=== PATIENT | male | born 1945 | race American Indian/Alaskan Native ===

== ENCOUNTER 2019-01-06 09:18 | Outpatient (CLI) | payer MEDICARE ==
--- NOTE | 2019-01-06 11:56 | Vascular Lab Report ---
DUPLEX DOPPLER LOWER EXTREMITY VEINS, BILATERAL INDICATION: Chronic venous hypertension (idiopathic) with ulcer of left lower. TECHNIQUE: Duplex doppler imaging was performed through the veins of both lower extremities using ve nous compression and other maneuvers. COMPARISON: No relevant prior imaging study available. FINDINGS: Right Common femoral vein: Negative. Right Superficial femoral vein: Negative. Right Popliteal vein: Negative. Right Calf veins: Negative. Left Common femoral vein: Negative. Left Superficial femoral vein: Negative. There is suggestion of echogenic chronic thrombotic residua in the mid left superficial femoral vein. No acute hypoechoic thrombus. Left Popliteal vein: Negative. Left Calf veins: Negative. Additional findings: None.. IMPRESSION: No sonographic evidence for acute DVT in either lower extremity. 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 Signer Name: Chris Cardenas Jr, MD Signed: 01/06/2019 11:51 AM Workstation Name: [id number]
== END 2019-01-06 09:19 | disposition home or self-care (01) ==
LOC: VAS 09:18
PROVIDERS: ATTEND Surgery
DX: I87.312 Chronic venous hypertension (idiopathic) with ulcer of left lower extremity (principal)
CPT/HCPCS: 93970

== ENCOUNTER 2019-01-07 07:54 | Outpatient (CLI) | payer MEDICARE | END 2019-01-07 07:55 | disposition home or self-care (01) | LOC: WOUND 07:54 | PROVIDERS: ATTEND Surgery | DX: I87.312 Chronic venous hypertension (idiopathic) with ulcer of left lower extremity (principal); L97.822 Non-pressure chronic ulcer of other part of left lower leg with fat layer exposed; I89.0 Lymphedema, not elsewhere classified; I11.0 Hypertensive heart disease with heart failure; I50.9 Heart failure, unspecified; F17.200 Nicotine dependence, unspecified, uncomplicated; Z85.46 Personal history of malignant neoplasm of prostate ==

== ENCOUNTER 2019-01-14 08:02 | Outpatient (CLI) | payer MEDICARE ==
[2019-01-14] MEDS ORDERED: VITAMIN A & D OINT 56.7 GM TP PRN (09:00)
== END 2019-01-14 08:03 | disposition home or self-care (01) ==
LOC: WOUND 08:02
PROVIDERS: ATTEND Surgery
DX: I87.312 Chronic venous hypertension (idiopathic) with ulcer of left lower extremity (principal); L97.822 Non-pressure chronic ulcer of other part of left lower leg with fat layer exposed; I89.0 Lymphedema, not elsewhere classified; I11.0 Hypertensive heart disease with heart failure; I50.9 Heart failure, unspecified; F17.200 Nicotine dependence, unspecified, uncomplicated; Z85.46 Personal history of malignant neoplasm of prostate
CPT/HCPCS: 99214; G0463

== ENCOUNTER 2019-10-05 13:19 | Emergency (ER) | payer MEDICARE, OTHER ==
[2019-10-05] MEDS ORDERED: ACETAMINOPHEN 325 MG TAB PO PRN (20:11)
[2019-10-05] MEDS ORDERED: ALBUTEROL 2.5 MG/3 ML NEBU IH PRN (20:11)
--- NOTE | 2019-10-05 20:13 | Emergency Department Report ---
ED General Adult HPI - General Chief complaint: Wound/Laceration Stated complaint: LEG WOUND SEEPING PUI?: No Time Seen by Provider: 10/05/19 20:02 Source: family, RN notes reviewed, old records reviewed Mode of arrival: Ambulatory Limitations: Physical Limitation, Other (Patient is a poor historian) - History of Present Illness Initial comments: This is a 74-year-old gentleman. His past medical history includes presumed ulcerative colitis, hypokalemia, hypomagnesemia, hypertension, COPD, dyslipidemia, gout, lower extremity lymphedema. Apparently, he has seen Dr. De Guzman in the wound care clinic in the past. He presents to the ER today with a complaint of seeping wound to left lower extremity. He denies headache, neck pain, chest pain, abdominal pain, shortness of breath, fevers, chills, trauma, irritative and obstructive urinary symptoms. Symptoms present for the past 3 days, do not radiate anywhere, and do not have exacerbating or relieving factors. The patient is somewhat of a poor historian. He cannot recall the last time he saw Dr. De Guzman in the wound care clinic. Some history is obtained from review of his old medical records. It is not clear who his dressing or wrapping his wounds at home. -: Gradual, days(s) Location: left, lower extremity Severity scale (0 -10): 0 Consistency: constant Improves with: none Worsens with: none Associated Symptoms: denies other symptoms - Related Data Previous Rx's Medication Instructions Recorded Last Taken Type ALBUTEROL NEB's [Proventil 0.083% 2.5 mg IH Q4HRT PRN #30 nebu 01/18/18 Unknown Rx NEBS] Aspirin [Adult Low Dose Aspirin EC] 81 mg PO DAILY #30 01/18/18 Unknown Rx Lisinopril [Zestril] 40 mg PO DAILY #30 01/18/18 Unknown Rx allopurinoL [Zyloprim] 300 mg PO DAILY #30 01/18/18 Unknown Rx Cholestyramine (with Sugar) 4 gm PO TID packet 02/08/18 Unknown Rx [Questran] predniSONE [Deltasone] 4 tab PO QDAY 7 Days #70 tablet 02/08/18 Unknown Rx Sulfamethoxazole/Trimethoprim 1 each PO BID #20 tablet 12/26/18 Unknown Rx [Bactrim DS TAB] ALBUTEROL NEB's [Proventil 0.083% 2.5 mg IH Q4HRT PRN #10 nebu 10/05/19 Unknown Rx NEBS] Acetaminophen [Acetaminophen TAB] 650 mg PO Q4H PRN #15 tablet 10/05/19 Unknown Rx Aspirin EC [Halfprin EC] 81 mg PO DAILY #30 tablet 10/05/19 Unknown Rx AtorvaSTATin [Lipitor] 20 mg PO QHS #30 10/05/19 Unknown Rx Famotidine [Pepcid] 20 mg PO BID #60 tablet 10/05/19 Unknown Rx Furosemide [Lasix TAB] 40 mg PO QDAY #30 tablet 10/05/19 Unknown Rx Potassium Chloride 20 meq PO DAILY #30 packet 10/05/19 Unknown Rx amLODIPine 10 mg PO DAILY #30 10/05/19 Unknown Rx amLODIPine 10 mg PO DAILY #30 tablet 10/05/19 Unknown Rx lisinopriL [Zestril TAB] 40 mg PO DAILY #30 tablet 10/05/19 Unknown Rx Allergies Allergy/AdvReac Type Severity Reaction Status Date / Time No Known Allergies Allergy Verified 10/05/19 13:37 ED Review of Systems ROS: Stated complaint: LEG WOUND SEEPING Other details as noted in HPI Constitutional: denies: fever Eyes: denies: eye discharge ENT: denies: congestion Respiratory: denies: wheezing Cardiovascular: denies: paroxysmal nocturnal dyspnea Gastrointestinal: denies: abdominal pain Genitourinary: denies: dysuria Musculoskeletal: myalgia Skin: rash, lesions ED Past Medical Hx - Past Medical History Hx Hypertension: Yes Hx CVA: No Hx Heart Attack/AMI: No Hx Congestive Heart Failure: Yes Hx Diabetes: No Hx Deep Vein Thrombosis: No Hx Liver Disease: No Hx Renal Disease: No Hx Arthritis: No Hx Seizures: No Hx Asthma: No Hx COPD: No Additional medical history: Lymphedema - Surgical History Additional Surgical History: prostate surgery - Social History Smoking Status: Unknown if ever smoked - Medications Home Medications: Home Medications Medication Instructions Recorded Confirmed Last Taken Type ALBUTEROL NEB's [Proventil 0.083% 2.5 mg IH Q4HRT PRN #30 nebu 18 01/30/18 Unknown Rx NEBS] Aspirin [Adult Low Dose Aspirin EC] 81 mg PO DAILY #30 01/18/18 01/30/18 Unknown Rx Lisinopril [Zestril] 40 mg PO DAILY #30 01/18/18 01/30/18 Unknown Rx allopurinoL [Zyloprim] 300 mg PO DAILY #30 01/18/18 01/30/18 Unknown Rx Cholestyramine (with Sugar) 4 gm PO TID packet 02/08/18 Unknown Rx [Questran] predniSONE [Deltasone] 4 tab PO QDAY 7 Days #70 tablet 02/08/18 Unknown Rx Sulfamethoxazole/Trimethoprim 1 each PO BID #20 tablet 12/26/18 Unknown Rx [Bactrim DS TAB] ALBUTEROL NEB's [Proventil 0.083% 2.5 mg IH Q4HRT PRN #10 nebu 10/05/19 Unknown Rx NEBS] Acetaminophen [Acetaminophen TAB] 650 mg PO Q4H PRN #15 tablet 10/05/19 Unknown Rx Aspirin EC [Halfprin EC] 81 mg PO DAILY #30 tablet 10/05/19 Unknown Rx AtorvaSTATin [Lipitor] 20 mg PO QHS #30 10/05/19 Unknown Rx Famotidine [Pepcid] 20 mg PO BID #60 tablet 10/05/19 Unknown Rx Furosemide [Lasix TAB] 40 mg PO QDAY #30 tablet 10/05/19 Unknown Rx Potassium Chloride 20 meq PO DAILY #30 packet 10/05/19 Unknown Rx amLODIPine 10 mg PO DAILY #30 10/05/19 Unknown Rx amLODIPine 10 mg PO DAILY #30 tablet 10/05/19 Unknown Rx lisinopriL [Zestril TAB] 40 mg PO DAILY #30 tablet 10/05/19 Unknown Rx ED Physical Exam - General Limitations: Other (Patient is somewhat of a poor historian) General appearance: alert, obese - Head Head exam: Present: atraumatic, normocephalic - Eye Eye exam: Present: normal appearance - ENT ENT exam: Present: normal exam, normal orophraynx, mucous membranes moist, normal external ear exam - Neck Neck exam: Present: normal inspection, full ROM. Absent: tenderness, meningismus - Respiratory Respiratory exam: Present: normal lung sounds bilaterally. Absent: respiratory distress - Cardiovascular Cardiovascular Exam: Present: regular rate, normal rhythm, normal heart sounds. Absent: bradycardia, tachycardia, irregular rhythm, systolic murmur, diastolic murmur, rubs, gallop - GI/Abdominal GI/Abdominal exam: Present: soft. Absent: distended, tenderness, guarding, rebound, rigid, pulsatile mass - Rectal Rectal exam: Present: deferred - Extremities Exam Extremities exam: Present: full ROM, pedal edema, other (2+ pulses noted in the bilateral upper and lower extremities. There is no palpable cord. negative Ho joe sign. Muscular compartments are soft. The pelvis is stable.). Absent: normal inspection (Patient has chronic appearing lymphedema in his bilateral lower extremities. In the left lower extremity, there is no redness, pus, streaking, discharge or crepitus. There is a 3 x 5 circular wound noted on the left posterior lower extremity, with active myiasis.), calf tenderness - Back Exam Back exam: Present: normal inspection, full ROM. Absent: tenderness, CVA tenderness (R), muscle spasm, paraspinal tenderness, vertebral tenderness - Neurological Exam Neurological exam: Present: alert, other (No facial droop. Tongue midline. Extraocular movements intact bilaterally. Facial sensation intact to light touch in V1, V2, V3 distribution bilaterally. 5 and a 5 strength in 4 extremities. Sensation intact to light touch in 4 extremities.). Absent: motor sensory deficit - Psychiatric Psychiatric exam: Present: normal affect, normal mood - Skin Skin exam: Present: warm, intact ED Course Vital Signs 10/05/19 10/05/19 13:40 19:45 Temperature 98.6 F Pulse Rate 67 Respiratory 18 Rate Blood Pressure 227/106 208/120 [Left] O2 Sat by Pulse 97 Oximetry ED Medical Decision Making - Lab Data Result diagrams: 10/05/19 20:36 10/05/19 20:36 Vital Signs 10/05/19 10/05/19 13:40 19:45 Temperature 98.6 F Pulse Rate 67 Respiratory 18 Rate Blood Pressure 227/106 208/120 [Left] O2 Sat by Pulse 97 Oximetry Lab Results 10/05/19 10/05/19 Range/Units 20:36 20:36 WBC 8.2 (4.5-11.0) K/mm3 RBC 5.14 H (3.65-5.03) M/mm3 Hgb 16.1 H (11.8-15.2) gm/dl Hct 48.2 H (35.5-45.6) % MCV 94 (84-94) fl MCH 31 (28-32) pg MCHC 33 (32-34) % RDW 15.3 H (13.2-15.2) % Plt Count 174 (140-440) K/mm3 Sodium 142 (137-145) mmol/L Potassium 4.4 (3.6-5.0) mmol/L Chloride 103.1 (98-107) mmol/L Carbon Dioxide 25 (22-30) mmol/L Anion Gap 18 mmol/L BUN 10 (9-20) mg/dL Creatinine 1.0 (0.8-1.5) mg/dL Estimated GFR > 60 ml/min BUN/Creatinine Ratio 10 % Glucose 88 (75-100) mg/dL Calcium 9.6 (8.4-10.2) mg/dL Magnesium 2.20 (1.7-2.3) mg/dL Total Creatine Kinase 221 H (55-170) units/L - Medical Decision Making Differential diagnosis, include but not limited to: Chronic lymphedema, chronic wounds, active myiasis, case management patient, medication noncompliance Assessment and plan: 74-year-old gentleman with chronic lymphedema, active myolysis and left lower extremity wound, without evidence of redness, pus, streaking, no evidence of compartment syndrome, neurovascularly intact. Case management consultation ordered. Discussed patient's history, physical with our general surgeon on-call, Dr. Crum. We agree that the patient does not meet criteria for hospitalization at this time. Dr. Badillo advises that the patient should follow-up with his outpatient wound care physician later on this week. I am in agreement with this plan of care. He also recommends Dakin's solution soaked gauze. Nursing team has been instructed to apply this. Hypertension reviewed and appreciated. This appears to be chronic. We will give the patient his outpatient medications, and refill his prescriptions. He does not require emergent de-escalation of his blood pressure, please reference the [employer] clinical policy on asymptomatic hypertension. Patient will be medicated with his chronic antihypertensive medications. We will also refill his medications. The patient will need to follow-up with an outpatient primary care doctor for chronic medical issues, and he will also need to follow-up with wound care. Case management consultation ordered, they can follow this up tomorrow, as it is currently after hours in this department, and the patient does not have an emergent case management needed. Critical care attestation.: If time is entered above; I have spent that time in minutes in the direct care o f this critically ill patient, excluding procedure time. ED Disposition Clinical Impression: Myiasis, Lymphedema, Hypertension, Case management patient Disposition: DC- TO HOME OR SELFCARE Is pt being admited?: No Does the pt Need Aspirin: No Condition: Stable Additional Instructions: Keep the lower extremity wound dressings in place. Follow-up with your wound surgeon, Dr. De Guzman, on Sunday or Sunday. We have contacted the general surgery team on-call, who work with Dr. De Guzman, and they have indicated that Dr. De Guzman has office hours Sunday or Sunday of this week. Therefore, it is very important to call the office first thing tomorrow, Sunday, to arrange outpatient follow-up for chronic wounds. Please continue current outpatient medications. Patient was found to have hypertension and elevated blood pressure in the emergency room. Please follow- up with a primary care doctor for hypertension within the next 3 to 4 weeks. Long-term complications of hypertension and elevated blood pressure include s troke, heart attack, disability, paralysis, loss of quality of life. Please return to the emergency room right away with new pain, worsening pain, migration of pain, projectile vomiting, change in mental status, confusion, inability to tolerate liquid feeds, new, worsened or different symptoms not present on the initial emergency room evaluation. For the patient's convenience, local primary care doctor have been listed; Dr. Janice Lee Referrals: SHELDON DE GUZMAN MD [Staff Physician] - 3-5 Days MIKY LEE MD [Staff Physician] - 3-5 Days
[2019-10-05] MEDS ORDERED: SODIUM HYPOCHLORITE, DAKIN'S 1/2 STRENGTH (0.25%) 473 ML TOPICAL SOLN TP ONE (20:32)
[2019-10-05 20:54] LABS: Hematocrit 48.2 % (35.5-45.6); Hemoglobin 16.1 gm/dl (11.8-15.2); Mean Corpuscular HGB Conc 33 % (32-34); Mean Corpuscular Volume 94 fl (84-94); Platelet Count 174 K/mm3 (140-440); Red Blood Count 5.14 M/mm3 (3.65-5.03); Red Cell Distribution Width 15.3 % (13.2-15.2)
[2019-10-05] MEDS ORDERED: FUROSEMIDE 40 MG TAB PO SCH (21:00)
[2019-10-05] MEDS ORDERED: LISINOPRIL 40 MG TAB PO SCH (21:00)
[2019-10-05] MEDS ORDERED: ASPIRIN EC 81 MG TAB PO SCH (21:00)
[2019-10-05] MEDS ORDERED: amLODIPine 10 MG TAB PO SCH (21:00)
[2019-10-05] MEDS ORDERED: amLODIPine 5 MG TAB PO SCH (21:00)
[2019-10-05 21:05] LABS: BUN/Creatinine Ratio 10; Blood Urea Nitrogen 10 mg/dL (9-20); Calcium 9.6 mg/dL (8.4-10.2)
[2019-10-05 21:13] LABS: INR 1.12 (0.87-1.13)
[2019-10-05] MEDS ORDERED: SODIUM CHLORIDE IRRI 500 ML 1,000 ML IR ONE (21:27)
[2019-10-05] MEDS ORDERED: FAMOTIDINE 20 MG TAB PO SCH (22:00)
[2019-10-05 22:04] VITALS: BP 198/96
== END 2019-10-05 22:04 | disposition home or self-care (01) ==
LOC: ED 13:19
DX: S81.802A Unspecified open wound, left lower leg, initial encounter (principal); B87.9 Myiasis, unspecified; I89.0 Lymphedema, not elsewhere classified; I10 Essential (primary) hypertension; I11.0 Hypertensive heart disease with heart failure; I50.9 Heart failure, unspecified
CPT/HCPCS: 36415; 80048; 82550; 83735; 85027; 85610; 99283; A6260; A9270

== ENCOUNTER 2019-10-16 08:21 | Outpatient (CLI) | payer MEDICARE ==
[2019-10-16] MEDS ORDERED: LIDOCAINE (4%) 40 MG/ML TOPICAL SOLN 50 ML BOTTLE TP SCH (08:30)
== END 2019-10-16 08:22 | disposition home or self-care (01) ==
LOC: WOUND 08:21
PROVIDERS: ATTEND Surgery
DX: I87.312 Chronic venous hypertension (idiopathic) with ulcer of left lower extremity (principal); L97.822 Non-pressure chronic ulcer of other part of left lower leg with fat layer exposed; I89.0 Lymphedema, not elsewhere classified; I11.0 Hypertensive heart disease with heart failure; I50.9 Heart failure, unspecified; F17.210 Nicotine dependence, cigarettes, uncomplicated; Z85.46 Personal history of malignant neoplasm of prostate

== ENCOUNTER 2019-10-23 08:02 | Outpatient (CLI) | payer MEDICARE ==
[2019-10-23] MEDS ORDERED: LIDOCAINE (4%) 40 MG/ML TOPICAL SOLN 50 ML BOTTLE TP SCH (08:30)
== END 2019-10-23 08:03 | disposition home or self-care (01) ==
LOC: WOUND 08:02
PROVIDERS: ATTEND Surgery
DX: I87.312 Chronic venous hypertension (idiopathic) with ulcer of left lower extremity (principal); L97.822 Non-pressure chronic ulcer of other part of left lower leg with fat layer exposed; I89.0 Lymphedema, not elsewhere classified; I11.0 Hypertensive heart disease with heart failure; I50.9 Heart failure, unspecified; F17.210 Nicotine dependence, cigarettes, uncomplicated; Z85.46 Personal history of malignant neoplasm of prostate